=== PATIENT | female | born 1945 | race Caucasian/White ===

== ENCOUNTER 2020-04-19 14:15 | Emergency (ER) | payer OTHER ==
[~2020-04-19] VITALS: Ht 149.9 cm; Wt 68.0 kg
[2020-04-19] MEDS ORDERED: LOSARTAN-HCTZ1 EAC3 PO (14:21)
[2020-04-19] MEDS ORDERED: NORVASC 2.5 MG2.5 M1 PO (14:21)
[2020-04-19] MEDS ORDERED: ATORVASTATIN CA80 MG PO (14:21)
[2020-04-19] MEDS ORDERED: MUCINEX1200 MG PO (14:22)
[2020-04-19] MEDS ORDERED: ASA81BEC PO (14:22)
[2020-04-19] MEDS ORDERED: SUPER THERAVIT1 EACH PO (14:22)
[2020-04-19] MEDS ORDERED: NOVOLOG100 UNIT/M SUBQ (14:23)
[2020-04-19] MEDS ORDERED: FLUOXETINE HCL20 M1 PO (14:23)
[2020-04-19] MEDS ORDERED: NORCO 5-325 TA1 EAC2 PO (15:56)
[2020-04-19 16:38] VITALS: BP 125/53
== END 2020-04-19 16:38 | disposition home or self-care (01) ==
LOC: M.ERS 14:15
DX: S22.32XA Fracture of one rib, left side, initial encounter for closed fracture (principal); E11.9 Type 2 diabetes mellitus without complications; I10 Essential (primary) hypertension; Z90.710 Acquired absence of both cervix and uterus; E78.00 Pure hypercholesterolemia, unspecified; Z88.2 Allergy status to sulfonamides; Z79.4 Long term (current) use of insulin; V29.59XA Motorcycle passenger injured in collision with other motor vehicles in traffic accident, initial encounter; Y93.89 Activity, other specified; Y92.89 Other specified places as the place of occurrence of the external cause; Y99.8 Other external cause status